=== PATIENT | female | born 1985 | race Caucasian/White ===

== ENCOUNTER 2022-09-22 23:36 | Emergency (ER) | payer OTHER ==
[~2022-09-22] VITALS: Ht 165.1 cm; Wt 95.3 kg
[2022-09-23 00:26] VITALS: BP_SYST 119
[2022-09-23] MEDS ORDERED: MORPHINE 4 MG INJ. 4 MG/ML VIAL IM ONE (00:30)
[2022-09-23] MEDS ORDERED: NACL 0.9% 1,000 ML IV ONE ×3 (00:30→05:00)
[2022-09-23] MEDS ORDERED: ONDANSETRON HCL 4 MG/2 ML VIAL IVP ONE (00:30)
[2022-09-23 00:58] LABS: EOSINOPHILS % (AUTO) 0.5 % (0.0-4.0); HEMATOCRIT 39.3 % (36-48); HEMOGLOBIN 12.9 g/dL (12.0-16.0); LYMPHOCYTES # (AUTO) 0.5 K/uL (1.0-5.5); LYMPHOCYTES % (AUTO) 9.1 % (20.5-51.5); MEAN CORPUSCULAR HEMOGLOBIN 28 pg (27-31); MEAN CORPUSCULAR HGB CONC 33 % (32-36); MEAN CORPUSCULAR VOLUME 85 fL (79.0-98.0); MONOCYTES # (AUTO) 0.3 K/uL (0.0-1.0); NEUTROPHILS # (AUTO) 4.9 K/uL (1.8-7.7); NEUTROPHILS % (AUTO) 85.4 % (40.0-70.0); PLATELET COUNT (AUTO) 206 K/uL (130-430); RED BLOOD CELL COUNT(AUTO) 4.62 MIL/uL (4.2-6.2); RED CELL DISTRIBUTION WIDTH 13.8 % (9.0-15.0); WHITE BLOOD COUNT (AUTO) 5.7 K/uL (4.8-10.8)
[2022-09-23 01:09] LABS: CALCIUM 8.4 mg/dL (8.4-11.0); CREATININE 0.77 mg/dL (0.55-1.30)
[2022-09-23 01:13] LABS: ALBUMIN 3.7 g/dL (3.4-4.8); TOTAL BILIRUBIN 0.5 mg/dL (0.0-1.0)
[2022-09-23 01:57] LABS: BILIRUBIN,URINE NEGATIVE (NEGATIVE); BLOOD, URINE 3+ (NEGATIVE); CLARITY/URINE CLOUDY (CLEAR); COLOR,URINE RED (YELLOW); GLUCOSE,URINE NEGATIVE (NEGATIVE); KETONES,URINE TRACE (NEGATIVE); LEUKOCYTE ESTERASE ,URINE TRACE (NEGATIVE); NITRITE, URINE POSITIVE (NEGATIVE); PH,URINE 5.5 (5.0-8.0); PROTEIN URINE 2+ (NEGATIVE)
[2022-09-23] MEDS ORDERED: PROCHLORPERAZINE EDISYLATE 10 MG/2 ML VIAL IVP ONE (02:15)
[2022-09-23] MEDS ORDERED: MORPHINE 4 MG INJ. 4 MG/ML VIAL IVP ONE (02:15)
[2022-09-23 02:18] LABS: BACTERIA,URINE FEW /HPF (None Seen); RBC,URINE >100 /HPF (0-3)
[2022-09-23] MEDS ORDERED: cefTRIAXone 1 GM IVPB PREMIX 50 ML IV ONE (04:15)
[2022-09-23] MEDS ORDERED: CIPR500T5 PO (05:03)
[2022-09-23] MEDS ORDERED: ACET1TAB93 PO (05:03)
[2022-09-23] MEDS ORDERED: PHE25 PO (05:03)
[2022-09-23 06:27] VITALS: BP_SYST 124
== END 2022-09-23 06:23 | disposition home or self-care (01) ==
LOC: SED 23:36
DX: N39.0 Urinary tract infection, site not specified (principal); R10.31 Right lower quadrant pain; R10.11 Right upper quadrant pain; Z79.899 Other long term (current) drug therapy
CPT/HCPCS: 99285; 80053; 81000; 83690; 85025; 36415; 81025; 74176; 96365; 96375; 96361; 76376; J0696; J2405; J0780; J2270; J7030

== ENCOUNTER 2023-04-21 02:29 | Emergency (ER) | payer OTHER ==
[~2023-04-21] VITALS: Ht 165.1 cm; Wt 98.9 kg
[~2023-04-21 02:29] MED LIST: CIPR500T5 PO; PHE25 PO
[2023-04-21 02:38] VITALS: BP_SYST 128; PULSE 83; RESP 20; TEMP 98.1; O2SAT 100
[2023-04-21 03:12] LABS: BASOPHILS % (AUTO) 0.2 % (0.0-2.0); EOSINOPHILS # (AUTO) 0.1 K/uL (0.0-0.4); EOSINOPHILS % (AUTO) 1.3 % (0.0-4.0); HEMATOCRIT 32.9 % (36-48); HEMOGLOBIN 10.4 g/dL (12.0-16.0); LYMPHOCYTES # (AUTO) 1.7 K/uL (1.0-5.5); MEAN CORPUSCULAR HEMOGLOBIN 26 pg (27-31); MEAN CORPUSCULAR HGB CONC 32 % (32-36); MEAN CORPUSCULAR VOLUME 82 fL (79.0-98.0); MONOCYTES # (AUTO) 0.5 K/uL (0.0-1.0); MONOCYTES % (AUTO) 10.8 % (1.7-9.3); NEUTROPHILS # (AUTO) 2.8 K/uL (1.8-7.7); NEUTROPHILS % (AUTO) 54.7 % (40.0-70.0); PLATELET COUNT (AUTO) 254 K/uL (130-430); RED BLOOD CELL COUNT(AUTO) 4.02 MIL/uL (4.2-6.2); RED CELL DISTRIBUTION WIDTH 15.4 % (9.0-15.0); WHITE BLOOD COUNT (AUTO) 5.1 K/uL (4.8-10.8)
[2023-04-21] MEDS ORDERED: NACL 0.9% 1,000 ML IV ONE (03:15)
[2023-04-21] MEDS ORDERED: ONDANSETRON HCL 4 MG/2 ML VIAL IVP ONE (03:15)
[2023-04-21] MEDS ORDERED: KETOROLAC TROMETHAMINE 30 MG VIAL IVP ONE (03:15)
[2023-04-21 03:26] LABS: CALCIUM 9.5 mg/dL (8.4-11.0); CREATININE 0.71 mg/dL (0.55-1.30); POTASSIUM 3.8 mmol/L (3.5-5.1)
[2023-04-21 03:31] LABS: ALBUMIN 3.6 g/dL (3.4-4.8); TOTAL BILIRUBIN 0.3 mg/dL (0.0-1.0); TOTAL PROTEIN, SERUM 6.9 g/dL (6.4-8.3)
[2023-04-21 03:49] LABS: BILIRUBIN,URINE NEGATIVE (NEGATIVE); BLOOD, URINE NEGATIVE (NEGATIVE); CLARITY/URINE CLEAR (CLEAR); COLOR,URINE YELLOW (YELLOW); GLUCOSE,URINE NEGATIVE (NEGATIVE); KETONES,URINE NEGATIVE (NEGATIVE); LEUKOCYTE ESTERASE ,URINE NEGATIVE (NEGATIVE); NITRITE, URINE NEGATIVE (NEGATIVE); PROTEIN URINE NEGATIVE (NEGATIVE); UROBILINOGEN,URINE 0.2 (0.2-1.0)
[2023-04-21] MEDS ORDERED: POLY17PO4 PO (05:41)
[2023-04-21] MEDS ORDERED: DOCU-144 PO (05:41)
[2023-04-21 06:06] VITALS: BP_SYST 100; PULSE 78; RESP 17; TEMP 97.8; O2SAT 100
== END 2023-04-21 06:05 | disposition home or self-care (01) ==
LOC: SED 02:29
DX: K59.00 Constipation, unspecified (principal); R10.31 Right lower quadrant pain; R10.11 Right upper quadrant pain; R11.0 Nausea; Z79.899 Other long term (current) drug therapy
CPT/HCPCS: 99285; 74177; 96374; 96375; 80053; 81001; 83690; 85025; 36415; 76376; 81025; 81003; J1885; J2405; Q9967